=== PATIENT | female | born 1940 | race Caucasian/White ===

== ENCOUNTER → 2018-02-07 11:52 | Outpatient (CLI) | payer MEDICARE, OTHER, SELFPAY ==
[2018-02-07 12:42] LABS: Synovial Fld Mononuclear WBC % 81.2 %; Synovial Fld Polynuclear WBC # 0.055 10^3/ul; Synovial Fld Polynuclear WBC % 18.8 %
[2018-02-07 13:11] LABS: AUTO B FLUID DILUENT BKGD CT WBC <0.1 RBC <0.01 (W<.1,R<.01)
[2018-02-07 13:12] LABS: Appearance /Synovial Fluid Sl hazy (CLEAR); Color / Synovial Fluid Yellow (Pale Yellow); RBC /Synovial Fluid 186 /mm3 (0)
[2018-02-07 13:43] LABS: Lymph 9 %; Monocyte /Synovial Fluid 68 %; Neutrophil 22 % (0-25); Plasma Cell /Synovial Fluid 1 %
[2018-02-07 13:44] LABS: Body Fluid QC Type(s) BF1Q,BF2Q
[2018-02-08 08:26] LABS: Pathologist Comment Reviewed
== END ==
PROVIDERS: Family Provider Family Medicine; PCP Family Medicine; Referring Provider Physician Assistant Surgical; Visit Provider Physician Assistant Surgical
DX: M17.11 Unilateral primary osteoarthritis, right knee (principal)
CPT/HCPCS: 87015; 87070; 87075; 87101; 87116; 87205; 87206; 89050; 89051